=== PATIENT | male | born 1970 | race Caucasian/White ===

== ENCOUNTER 2017-01-15 20:25 | Emergency (ER) | payer BC ==
[2017-01-15] MEDS ORDERED: SODIUM CHLORIDE 0.9% 1,000 ML IV STA ×2 (20:37)
[2017-01-15] MEDS ORDERED: RX INFO: IV CONTRAST WAS GIVEN 1 EACH MISC MISCELLANE PRN (20:37)
[2017-01-15] MEDS ORDERED: AMPICILLIN-SULBACTAM 3 GM in SODIUM CHLORIDE 0.9% 100 ML IVPB STA (20:38)
[2017-01-15] MEDS ORDERED: ACETAMINOPHEN IV (For NPO) 1,000 MG in EMPTY BAG 1 BAG IVPB STA (20:38)
[2017-01-15] MEDS ORDERED: KETOROLAC 30 MG/ML 1 ML VIAL IVP STA (20:38)
[2017-01-15] MEDS ORDERED: DEXAMETHASONE SOD PHOSPHATE 10 MG/ML 1 ML VIAL IV STA (20:38)
--- NOTE | 2017-01-15 20:40 | ED ---
General Adult HPI - General Source: patient, RN notes reviewed, old records reviewed Mode of arrival: ambulatory Limitations: no limitations <Reinaldo Gimenez - Last Filed: 01/15/17 20:39> <Naima Hoover - Last Filed: 01/15/17 22:20> - General Chief complaint: ENT Stated complaint: Sent by [facility] Time Seen by Provider: 01/15/17 20:33 - History of Present Illness Initial comments: This is a 47-year-old male here for evaluation sore throat. Right-sided sore throat worse with swallowing. Pain for the last 3 days as well as increasing. No fevers. Patient denies sick contacts no known jealously. No travel history. Patient states that the symptoms are getting progressively worse. Motrin does help by this point is providing no relief. Was seen in urgent care and sent to emergency room for further evaluation and management. (Reinaldo Gimenez) - Related Data Home Medications Medication Instructions Recorded Confirmed Sulfamethox-Tmp 800-160Mg [Bactrim 1 tab PO Q12H 01/15/17 01/15/17 DS 800-160 mg] Previous Rx's Medication Instructions Recorded Amoxic-Pot Clav 875-125Mg 1 tab PO Q12HR #20 tablet 01/15/17 [Augmentin 875-125] Allergies Allergy/AdvReac Type Severity Reaction Status Date / Time No Known Allergies Allergy Verified 01/15/17 20:30 Review of Systems ROS Other: All systems not noted in ROS Statement are negative. <Reinaldo Gimenez - Last Filed: 01/15/17 20:39> ROS Other: All systems not noted in ROS Statement are negative. <Naima Hoover - Last Filed: 01/15/17 22:20> ROS Statement: Those systems with pertinent positive or pertinent negative responses have been documented in the HPI. Past Medical History Past Medical History: No Reported History History of Any Multi-Drug Resistant Organisms: None Reported Past Surgical History: No Surgical Hx Reported Past Psychological History: No Psychological Hx Reported Smoking Status: Former smoker Past Alcohol Use History: None Reported Past Drug Use History: None Reported <Reinaldo Gimenez - Last Filed: 01/15/17 20:39> General Exam Limitations: no limitations General appearance: alert, in no apparent distress Head exam: Present: atraumatic, normocephalic, normal inspection Eye exam: Present: normal appearance, PERRL, EOMI. Absent: scleral icterus, conjunctival injection, periorbital swelling ENT exam: Present: normal exam, mucous membranes moist, other (Right tonsillar erythema and hypertrophy) Neck exam: Present: normal inspection. Absent: tenderness, meningismus, lymphadenopathy Respiratory exam: Present: normal lung sounds bilaterally. Absent: respiratory distress, wheezes, rales, rhonchi, stridor Cardiovascular Exam: Present: regular rate, normal rhythm, normal heart sounds. Absent: systolic murmur, diastolic murmur, rubs, gallop, clicks GI/Abdominal exam: Present: soft, normal bowel sounds. Absent: distended, tenderness, guarding, rebound, rigid Extremities exam: Present: normal inspection, full ROM, normal capillary refill. Absent: tenderness, pedal edema, joint swelling, calf tenderness Back exam: Present: normal inspection Neurological exam: Present: alert, oriented X3, CN II-XII intact Psychiatric exam: Present: normal affect, normal mood Skin exam: Present: warm, dry, intact, normal color. Absent: rash <Reinaldo Gimenez - Last Filed: 01/15/17 20:39> Course <Reinaldo Gimenez - Last Filed: 01/15/17 20:39> <Naima Hoover - Last Filed: 01/15/17 22:20> Vital Signs 01/15/17 20:27 Temperature 97.4 F L Pulse Rate 72 Respiratory 18 Rate Blood Pressure 129/83 O2 Sat by Pulse 99 Oximetry Patient was reassessed at term 2200, CT of the neck is absolutely normal CBC, CMP, strep, mono negative he was afebrile patient was reexamined and did notice at 3.5 cm lymph node in her right submandibular area and his tonsils are quite large caliber she'll be gone home on now Augmentin 200 for next 10 days and I will refer him to Dr. Jorge for possible scope and keep an eye on the lymph node and the cause for the enlarged lymph node, patient agreed with the heel cord Dr. Jorge's office first in the morning and return to the ER if symptoms get worse (Naima Hoover) EKG Findings - EKG Comments: EKG Findings:: Normal sinus rhythm ventricular rate is 64 [place] interval is 174 to shoot issues were not 4 QT/QTc is 414/430, diffuse this EKG reveals T-wave inversion in lead [address] elevation or ST depression noticed at the other leads <Naima Hoover - Last Filed: 01/15/17 22:20> Medical Decision Making - Lab Data Result diagrams: 01/15/17 20:56 01/15/17 20:56 <Naima Hoover - Last Filed: 01/15/17 22:20> - Lab Data Lab Results 01/15/17 01/15/17 01/15/17 Range/Units 20:56 20:56 20:56 WBC 7.3 (3.8-10.6) k/uL RBC 4.75 (4.30-5.90) m/uL Hgb 14.3 (13.0-17.5) gm/dL Hct 39.9 (39.0-53.0) % MCV 83.9 (80.0-100.0) fL MCH 30.1 (25.0-35.0) pg MCHC 35.8 (31.0-37.0) g/dL RDW 12.8 (11.5-15.5) % Plt Count 222 (150-450) k/uL Neutrophils % 63 % Lymphocytes % 26 % Monocytes % 8 % Eosinophils % 2 % Basophils % 0 % Neutrophils # 4.5 (1.3-7.7) k/uL Lymphocytes # 1.9 (1.0-4.8) k/uL Monocytes # 0.5 (0-1.0) k/uL Eosinophils # 0.2 (0-0.7) k/uL Basophils # 0.0 (0-0.2) k/uL Sodium 138 (137-145) mmol/L Potassium 3.9 (3.5-5.1) mmol/L Chloride 105 (98-107) mmol/L Carbon Dioxide 24 (22-30) mmol/L Anion Gap 9 mmol/L BUN 12 (9-20) mg/dL Creatinine 1.21 (0.66-1.25) mg/dL Est GFR (MDRD) Af Amer >60 (>60 ml/min/1.73 sqM) Est GFR (MDRD) Non-Af >60 (>60 ml/min/1.73 sqM) Glucose 85 (74-99) mg/dL Calcium 8.8 (8.4-10.2) mg/dL Phosphorus 3.9 (2.5-4.5) mg/dL Magnesium 1.7 (1.6-2.3) mg/dL Total Bilirubin 0.7 (0.2-1.3) mg/dL AST 36 (17-59) U/L ALT 60 (21-72) U/L Alkaline Phosphatase 57 (38-126) U/L Total Protein 7.3 (6.3-8.2) g/dL Albumin 4.4 (3.5-5.0) g/dL Heterophile Antibody Negative (Negative) Group A Strep Rapid (Negative) 01/15/17 Range/Units 21:12 WBC (3.8-10.6) k/uL RBC (4.30-5.90) m/uL Hgb (13.0-17.5) gm/dL Hct (39.0-53.0) % MCV (80.0-100.0) fL MCH (25.0-35.0) pg MCHC (31.0-37.0) g/dL RDW (11.5-15.5) % Plt Count (150-450) k/uL Neutrophils % % Lymphocytes % % Monocytes % % Eosinophils % % Basophils % % Neutrophils # (1.3-7.7) k/uL Lymphocytes # (1.0-4.8) k/uL Monocytes # (0-1.0) k/uL Eosinophils # (0-0.7) k/uL Basophils # (0-0.2) k/uL Sodium (137-145) mmol/L Potassium (3.5-5.1) mmol/L Chloride (98-107) mmol/L Carbon Dioxide (22-30) mmol/L Anion Gap mmol/L BUN (9-20) mg/dL Creatinine (0.66-1.25) mg/dL Est GFR (MDRD) Af Amer (>60 ml/min/1.73 sqM) Est GFR (MDRD) Non-Af (>60 ml/min/1.73 sqM) Glucose (74-99) mg/dL Calcium (8.4-10.2) mg/dL Phosphorus (2.5-4.5) mg/dL Magnesium (1.6-2.3) mg/dL Total Bilirubin (0.2-1.3) mg/dL AST (17-59) U/L ALT (21-72) U/L Alkaline Phosphatase (38-126) U/L Total Protein (6.3-8.2) g/dL Albumin (3.5-5.0) g/dL Heterophile Antibody (Negative) Group A Strep Rapid Negative (Negative) Disposition <Reinaldo Gimenez - Last Filed: 01/15/17 20:39> <Naima Hoover - Last Filed: 01/15/17 22:20> Clinical Impression: Lymphadenopathy Disposition: HOME SELF-CARE Condition: Fair Prescriptions: Amoxic-Pot Clav 875-125Mg [Augmentin 875-125] 1 tab PO Q12HR #20 tablet Referrals: None,Stated [Primary Care Provider] - 1-2 days Jalen Jorge MD [STAFF PHYSICIAN] - 1-2 days
[2017-01-15 21:08] LABS: Basophils % (A) 0 %; CH 30.1; Eosinophils # (A) 0.2 k/uL (0-0.7); Eosinophils % (A) 2 %; HCT 39.9 % (39.0-53.0); HDW 2.67; HGB 14.3 gm/dL (13.0-17.5); Luc # (Auto) 0.14; Luc % (Auto) 2; Lymphocytes # (A) 1.9 k/uL (1.0-4.8); Lymphocytes % (A) 26 %; MCH 30.1 pg (25.0-35.0); MCHC 35.8 g/dL (31.0-37.0); MCV 83.9 fL (80.0-100.0); Mean Platelet Volume 8.5; Monocytes # (A) 0.5 k/uL (0-1.0); Monocytes % (A) 8 %; Neutrophils # (A) 4.5 k/uL (1.3-7.7); Neutrophils % (A) 63 %; RBC 4.75 m/uL (4.30-5.90); RDW 12.8 % (11.5-15.5); WBC 7.3 k/uL (3.8-10.6); WBC (Perox) 7.17
[2017-01-15 21:21] LABS: ALT 60 U/L (21-72); AST 36 U/L (17-59); Alkaline Phosphatase 57 U/L (38-126); Anion Gap 9 mmol/L; Blood Urea Nitrogen 12 mg/dL (9-20); Calcium 8.8 mg/dL (8.4-10.2); Carbon Dioxide 24 mmol/L (22-30); Chloride 105 mmol/L (98-107); Glucose 85 mg/dL (74-99); Magnesium 1.7 mg/dL (1.6-2.3); Non-African American GFR(MDRD) >60 (>60 ml/min/1.73 sqM); Phosphorous 3.9 mg/dL (2.5-4.5); Potassium 3.9 mmol/L (3.5-5.1); Sodium 138 mmol/L (137-145); Total Bilirubin 0.7 mg/dL (0.2-1.3); Total Protein 7.3 g/dL (6.3-8.2)
--- NOTE | 2017-01-15 21:44 | CT ---
EXAMINATION TYPE: CT soft tissue neck w con DATE OF EXAM: 01/15/2017 HISTORY: Right sided neck swelling marked by BB COMPARISON: NONE CT DLP: 628.3 mGycm. Automated Exposure Control for Dose Reduction was Utilized. TECHNIQUE: CT scan of the neck is performed with IV Contrast, patient injected with 100 mL of Omnipa que 300, axial images are obtained, coronal and sagittal reformatted images are reviewed. FINDINGS: Palpable abnormalities marked with a BB. Deep to the BB marker there is no abnormal CT finding. No sk in thickening, subcutaneous edema, subcutaneous emphysema, or masses seen. No fascial thickening is a ppreciated. No thickening of the platysma or underlying sternocleidomastoid is noted. Parotid and submandibular glands are symmetric and within normal limits. Thyroid gland is slightly he terogenous containing multiple subcentimeter hypoattenuated nodular areas. There is no evidence of hemodynamically significant carotid stenosis. Left vertebral artery is domina nt. Examination is not optimized for intracranial evaluation. The lung apices demonstrate no evidence of pneumothorax. There is no gross evidence of lymphadenopath y within the center neck. Osseous structures appear intact. Dental fillings creates spray artifact an d partially obscure surrounding visualization. Paranasal sinuses and mastoid air cells appear well ae rated. Mild degenerative change is seen at C5-C6 within the cervical spine. IMPRESSION: No CT abnormality is present to correspond to the patient's palpable abnormality, deep to the palpabl e marker. Unremarkable examination.
[2017-01-15 23:14] VITALS: BP 131/86; PULSE 66; RESP 16; TEMP 98.3
== END 2017-01-15 23:15 | disposition home or self-care (01) ==
LOC: EC 20:25
DX: R59.1 Generalized enlarged lymph nodes (principal); Z87.891 Personal history of nicotine dependence
CPT/HCPCS: 99284; 96365; 96367; 96375 ×2; 96361; 36415; 93005; 80053; 83735; 84100; 85025; 86308; 87081; 87430; 70491; J1100; J1885; Q9967; J0295; J0131